=== PATIENT | female | born 1945 | race Hispanic/Latino ===

== ENCOUNTER 2022-05-28 17:12 | Emergency (ER) | payer SELFPAY ==
[2022-05-28] MEDS ORDERED: Ketorolac Tromethamine 30 MG/ML VIAL ONE (20:15)
[2022-05-28] MEDS ORDERED: Fentanyl 100 MCG/2 ML VIAL ONE (20:15)
== END 2022-05-28 21:56 | disposition home or self-care (01) ==
LOC: ERS 17:12
DX: S42.201A Unspecified fracture of upper end of right humerus, initial encounter for closed fracture (principal); J44.9 Chronic obstructive pulmonary disease, unspecified; W19.XXXA Unspecified fall, initial encounter
CPT/HCPCS: 96374; 96375; J1885; J3010